=== PATIENT | female | born 1950 | race Caucasian/White ===

== ENCOUNTER 2022-11-20 19:11 | Emergency (ER) | payer MEDICARE, OTHER ==
[~2022-11-20] VITALS: Ht 162.6 cm; Wt 70.0 kg
[~2022-11-20 19:11] MED LIST: LOPE-232 PO; LORA10TA7 PO; PANT-31 PO; SERT-162 PO; TOLT4CAP PO; TRAZ150T80 PO; TRAZADONE PO; TRAZODONE; VENL-67 PO; ZOLOFT
[2022-11-20 20:18] VITALS: BP 150/77
[2022-11-20 20:42] LABS: COVID AG,FIA SOURCE NASAL SWAB
[2022-11-20 20:46] LABS: BASOPHILS % (AUTO) 0.6 % (0.0-2.0); EOSINOPHILS % (AUTO) 0.1 % (1.0-6.0); HEMATOCRIT 41.1 % (36-46); HEMOGLOBIN 13.6 g/dL (12.0-16.0); LYMPHOCYTES # (AUTO) 0.9 K/uL (1.0-4.8); LYMPHOCYTES % (AUTO) 28.1 % (22.0-44.0); MEAN CORPUSCULAR HEMOGLOBIN 37.5 pg (26.0-34.0); MEAN CORPUSCULAR HGB CONC 33.1 G/dL (31.0-37.0); MEAN CORPUSCULAR VOLUME 113 fL (80-100); MONOCYTES # (AUTO) 0.1 K/uL (0.1-1.0); MONOCYTES % (AUTO) 2.9 % (2.0-9.0); NEUTROPHILS # (AUTO) 2.2 K/uL (1.8-7.7); NEUTROPHILS % (AUTO) 68.3 % (40.0-70.0); PLATELET COUNT (AUTO) 209 K/uL (150-450); RED BLOOD CELL COUNT(AUTO) 3.62 MIL/uL (4.00-5.20); RED CELL DISTRIBUTION WIDTH 14.4 % (11.5-14.5)
[2022-11-20 20:51] LABS: ANION GAP 17 mmol/L (8-16); CALCIUM, TOTAL 9.2 mg/dL (8.8-10.5); CARBON DIOXIDE 21 mmol/L (22-29); CHLORIDE 108 mmol/L (98-107); CREATININE 0.58 mg/dL (0.60-1.30); GLUCOSE,RANDOM 128 mg/dL (70-110); POTASSIUM 3.9 mmol/L (3.5-5.1); SODIUM SERUM 146 mmol/L (136-145); UREA NITROGEN, BLOOD 6 mg/dL (7-18)
[2022-11-20 20:57] LABS: ALANINE AMINOTRANSFERASE 70 U/L (12-78); ALBUMIN 3.4 g/dL (3.4-5.0); ALKALINE PHOSPHATASE 441 U/L (46-116); ASPARTATE AMINOTRANSFERASE 148 U/L (15-37); BILIRUBIN,TOTAL 0.6 mg/dL (0.1-1.0); GLOMERULAR FILTR. RATE CALC > 60 mL/min (>60); TOTAL PROTEIN, SERUM 6.8 g/dL (6.4-8.2)
== END 2022-11-21 01:59 | disposition home or self-care (01) ==
LOC: EMS 19:14
DX: R45.851 Suicidal ideations (principal); F32.A Depression, unspecified; E03.9 Hypothyroidism, unspecified; F10.20 Alcohol dependence, uncomplicated; F41.9 Anxiety disorder, unspecified; F17.210 Nicotine dependence, cigarettes, uncomplicated; Z96.642 Presence of left artificial hip joint; Z98.890 Other specified postprocedural states; Z20.822 Contact with and (suspected) exposure to COVID-19; Z91.51 Personal history of suicidal behavior
CPT/HCPCS: 99285; 87426; 80053; 85025; 36415; G0480

== ENCOUNTER 2023-03-10 14:49 | Inpatient (IN) | payer MEDICARE, MEDICAID ==
[~2023-03-10] VITALS: Ht 157.5 cm; Wt 60.0 kg
[2023-03-10 15:46] LABS: COVID AG,FIA SOURCE NASOPHARYNGEAL
[2023-03-10 15:49] LABS: BASOPHILS % (AUTO) 0.8 % (0.0-2.0); EOSINOPHILS % (AUTO) 1.4 % (1.0-6.0); HEMATOCRIT 37.5 % (36-46); HEMOGLOBIN 12.5 g/dL (12.0-16.0); LYMPHOCYTES # (AUTO) 2.3 K/uL (1.0-4.8); MEAN CORPUSCULAR HEMOGLOBIN 36.7 pg (26.0-34.0); MEAN CORPUSCULAR HGB CONC 33.3 G/dL (31.0-37.0); MEAN CORPUSCULAR VOLUME 110 fL (80-100); MONOCYTES # (AUTO) 0.5 K/uL (0.1-1.0); MONOCYTES % (AUTO) 9.8 % (2.0-9.0); PLATELET COUNT (AUTO) 185 K/uL (150-450); RED BLOOD CELL COUNT(AUTO) 3.39 MIL/uL (4.00-5.20); RED CELL DISTRIBUTION WIDTH 15.1 % (11.5-14.5)
[2023-03-10 15:50] LABS: APPEARANCE,URINE CLEAR (CLEAR); BILIRUBIN,URINE NEGATIVE (NEGATIVE); GLUCOSE, URINE (UA) NEGATIVE (NEGATIVE); KETONES,URINE NEGATIVE (NEGATIVE); LEUKOCYTE ESTERASE ,URINE NEGATIVE (NEGATIVE); NITRATE,URINE NEGATIVE (NEGATIVE); OCCULT BLOOD,URINE NEGATIVE (NEGATIVE); PROTEIN,URINE NEGATIVE (NEGATIVE); SPECIFIC GRAVITIY, URINE 1.002 (1.003-1.030); UROBILINOGEN,URINE <=1.0 mg/dL (<=1.0)
[2023-03-10 15:57] LABS: AMPHET/METH SCREEN,URINE NEGATIVE (NEGATIVE); BARBITURATE SCREEN, URINE NEGATIVE (NEGATIVE); BENZODIAZEPINES SCREEN,URINE NEGATIVE (NEGATIVE); CANNABINOID SCREEN,URINE NEGATIVE (NEGATIVE); COCAINE SCREEN,URINE NEGATIVE (NEGATIVE); METHADONE SCREEN, URINE NEGATIVE (NEGATIVE); OPIATE SCREEN,URINE NEGATIVE (NEGATIVE); PHENCYCLIDINE SCREEN,URINE NEGATIVE (NEGATIVE)
[2023-03-10] MEDS ORDERED: QUEtiapine FUMARATE 100 MG TABLET PO PRN (16:00)
[2023-03-10] MEDS ORDERED: ZOLPIDEM TARTRATE 10 MG TABLET PO PRN (16:00)
[2023-03-10 16:02] LABS: ANION GAP 9 mmol/L (8-16); CARBON DIOXIDE 28 mmol/L (22-29); CHLORIDE 107 mmol/L (98-107); CREATININE 0.46 mg/dL (0.60-1.30); GLOMERULAR FILTR. RATE CALC > 60 mL/min (>60); GLUCOSE,RANDOM 110 mg/dL (70-110); POTASSIUM 4.4 mmol/L (3.5-5.1); SODIUM SERUM 144 mmol/L (136-145); UREA NITROGEN, BLOOD 4 mg/dL (7-18)
[2023-03-10 16:08] LABS: ALANINE AMINOTRANSFERASE 74 U/L (12-78); ALBUMIN 3.1 g/dL (3.4-5.0); ALKALINE PHOSPHATASE 532 U/L (46-116); ASPARTATE AMINOTRANSFERASE 208 U/L (15-37); BILIRUBIN,TOTAL 0.9 mg/dL (0.1-1.0); LIPASE 29 U/L (73-393); TOTAL PROTEIN, SERUM 6.3 g/dL (6.4-8.2)
[2023-03-10] MEDS ORDERED: LEVO25TA9 PO (16:09)
[2023-03-10] MEDS ORDERED: VENL-68 PO (16:09)
[2023-03-10] MEDS ORDERED: TRAZ-283 PO (16:09)
[2023-03-10 16:12] LABS: LACTIC ACID 3.2 mmol/L (0.4-2.0)
[2023-03-10 16:26] LABS: BACTERIA,URINE Moderate /HPF (None Seen); RBC,URINE 0-2 /HPF (0-2)
[2023-03-10] MEDS ORDERED: PERTUSS(ACELL),DIPH,TET VAC/PF 0.5 ML SYRINGE IM. ONE (17:00)
[2023-03-10] MEDS ORDERED: BACITRACIN 0.9 GM PACKET OINTMENT TP ONE (17:00)
[2023-03-10] MEDS: LORazepam 1 MG TABLET PO PRN ×2 (18:37→20:18)
[2023-03-11] MEDS ORDERED: TraZODone HCL 50 MG TABLET PO ONE ×2 (02:30→21:30)
[2023-03-11 06:58] LABS: ANION GAP 6 mmol/L (8-16); CALCIUM, TOTAL 8.2 mg/dL (8.8-10.5); CARBON DIOXIDE 26 mmol/L (22-29); CHLORIDE 107 mmol/L (98-107); CREATININE 0.48 mg/dL (0.60-1.30); GLOMERULAR FILTR. RATE CALC > 60 mL/min (>60); GLUCOSE,RANDOM 106 mg/dL (70-110); POTASSIUM 4.1 mmol/L (3.5-5.1); SODIUM SERUM 139 mmol/L (136-145); UREA NITROGEN, BLOOD 6 mg/dL (7-18)
[2023-03-11 07:08] LABS: LACTIC ACID 0.6 mmol/L (0.4-2.0)
[2023-03-11] MEDS: LORazepam 1 MG TABLET PO PRN ×3 (08:09→14:45)
[2023-03-11] MEDS: LEVOTHYROXINE SODIUM 25 MCG TABLET PO SCH (09:18)
[2023-03-11] MEDS: VENLAFAXINE HCL 150 MG ER CAPSULE PO SCH (12:07)
[2023-03-11] MEDS ORDERED: ACETAMINOPHEN 325 MG TABLET PO ONE (17:00)
[2023-03-11 23:30] VITALS: BP 136/66
[2023-03-12] MEDS ORDERED: PNEUMOCOCCAL VACCINE POLYVALENT 0.5 ML VIAL [PPSV23] IM. ONE (03:15)
[2023-03-12] MEDS: LEVOTHYROXINE SODIUM 25 MCG TABLET PO SCH (06:10)
[2023-03-12 09:52] VITALS: BP 148/77
[2023-03-12] MEDS: VENLAFAXINE HCL 150 MG ER CAPSULE PO SCH (10:28)
[2023-03-12] MEDS: LORazepam 1 MG TABLET PO PRN ×2 (10:46→20:06)
[2023-03-12 16:41] VITALS: BP 145/78
[2023-03-12] MEDS ORDERED: BACITRACIN 28 GM OINTMENT TP PRN (17:30)
[2023-03-12] MEDS ORDERED: IBUPROFEN 600 MG TABLET PO PRN (17:30)
[2023-03-12] MEDS ORDERED: PETROLATUM,WHITE 28 GM JELLY TP PRN (17:30)
[2023-03-12] MEDS ORDERED: ALBUTEROL SULFATE HFA 90 MCG/PUFF 8 GM INHALER IH PRN (17:30)
[2023-03-12] MEDS ORDERED: MAG HYDROX/AL HYDROX/SIMETH ES 30 ML SUSPENSION UDCUP PO PRN (17:30)
[2023-03-12] MEDS ORDERED: CloNIDine HCL 0.1 MG TABLET PO PRN (17:30)
[2023-03-12] MEDS ORDERED: OMEPRAZOLE 20 MG CAPSULE PO PRN (17:30)
[2023-03-12] MEDS ORDERED: ACETAMINOPHEN 325 MG TABLET PO PRN (17:30)
[2023-03-12] MEDS ORDERED: DOCUSATE SODIUM 100 MG CAPSULE PO PRN (17:30)
[2023-03-12] MEDS ORDERED: LOPERAMIDE HCL 2 MG CAPSULE PO PRN (17:30)
[2023-03-12] MEDS ORDERED: MAGNESIUM HYDROXIDE SUSPENSION 30 ML UDCUP PO PRN (17:30)
[2023-03-12] MEDS ORDERED: ONDANSETRON HCL 4 MG TABLET PO PRN (17:30)
[2023-03-12] MEDS: TOLTERODINE TARTRATE 2 MG ER CAPSULE PO SCH (20:42)
[2023-03-13] MEDS: LEVOTHYROXINE SODIUM 25 MCG TABLET PO SCH (06:11)
[2023-03-13] MEDS: VENLAFAXINE HCL 150 MG ER CAPSULE PO SCH (08:59)
[2023-03-13 09:00] VITALS: BP 139/78
[2023-03-13] MEDS: LORATADINE 10 MG TABLET PO SCH (09:00)
[2023-03-13] MEDS: FOLIC ACID 1 MG TABLET PO SCH (09:00)
[2023-03-13] MEDS: THIAMINE 100 MG TABLET PO SCH (09:00)
[2023-03-13] MEDS: MULTIVITAMINS WITH MINERALS, THERAPEUTIC TABLET PO SCH (09:01)
[2023-03-13] MEDS: LORazepam 1 MG TABLET PO PRN ×2 (12:01→20:31)
[2023-03-13 20:30] VITALS: BP 132/83
[2023-03-13] MEDS: TOLTERODINE TARTRATE 2 MG ER CAPSULE PO SCH (20:32)
[2023-03-13] MEDS: TraZODone HCL 150 MG TABLET PO SCH (21:24)
[2023-03-14] MEDS: LEVOTHYROXINE SODIUM 25 MCG TABLET PO SCH (06:48)
[2023-03-14 08:00] VITALS: BP 134/83
[2023-03-14] MEDS: MULTIVITAMINS WITH MINERALS, THERAPEUTIC TABLET PO SCH (09:25)
[2023-03-14] MEDS: VENLAFAXINE HCL 150 MG ER CAPSULE PO SCH (09:25)
[2023-03-14] MEDS: THIAMINE 100 MG TABLET PO SCH (09:25)
[2023-03-14] MEDS: FOLIC ACID 1 MG TABLET PO SCH (09:25)
[2023-03-14] MEDS: LORATADINE 10 MG TABLET PO SCH (09:27)
[2023-03-14] MEDS: LORazepam 1 MG TABLET PO PRN ×2 (10:06→17:10)
[2023-03-14 12:30] VITALS: BP 112/61
[2023-03-14 13:30] VITALS: BP 123/60
[2023-03-14] MEDS: TraZODone HCL 150 MG TABLET PO SCH (21:14)
[2023-03-14] MEDS: TOLTERODINE TARTRATE 2 MG ER CAPSULE PO SCH (21:14)
[2023-03-15] MEDS: LEVOTHYROXINE SODIUM 25 MCG TABLET PO SCH (06:40)
[2023-03-15] MEDS: FOLIC ACID 1 MG TABLET PO SCH (08:53)
[2023-03-15] MEDS: THIAMINE 100 MG TABLET PO SCH (08:53)
[2023-03-15] MEDS: VENLAFAXINE HCL 150 MG ER CAPSULE PO SCH (08:53)
[2023-03-15] MEDS: LORATADINE 10 MG TABLET PO SCH (08:53)
[2023-03-15] MEDS: MULTIVITAMINS WITH MINERALS, THERAPEUTIC TABLET PO SCH (08:54)
[2023-03-15] MEDS: LORazepam 1 MG TABLET PO PRN (09:39)
[2023-03-15 09:41] VITALS: BP 102/60
[2023-03-15 17:12] VITALS: BP 136/70
[2023-03-15] MEDS ORDERED: TRAZ-283 PO (20:16)
[2023-03-15] MEDS ORDERED: VENL150C4 PO (20:16)
[2023-03-15 20:43] VITALS: BP 111/63
[2023-03-15] MEDS: TOLTERODINE TARTRATE 2 MG ER CAPSULE PO SCH (20:52)
[2023-03-15] MEDS: TraZODone HCL 150 MG TABLET PO SCH (20:52)
[2023-03-16] MEDS: LEVOTHYROXINE SODIUM 25 MCG TABLET PO SCH (06:38)
[2023-03-16 06:48] LABS: COVID AG,FIA SOURCE NASAL SWAB
[2023-03-16] MEDS ORDERED: CEFU500T41 PO (07:11)
[2023-03-16] MEDS ORDERED: LORA10TA7 PO ×2 (07:18→07:22)
[2023-03-16] MEDS ORDERED: LEVO125T95 PO (07:21)
[2023-03-16] MEDS: FOLIC ACID 1 MG TABLET PO SCH (08:41)
[2023-03-16] MEDS: LORATADINE 10 MG TABLET PO SCH (08:41)
[2023-03-16] MEDS: THIAMINE 100 MG TABLET PO SCH (08:41)
[2023-03-16] MEDS: VENLAFAXINE HCL 150 MG ER CAPSULE PO SCH (08:42)
[2023-03-16] MEDS: MULTIVITAMINS WITH MINERALS, THERAPEUTIC TABLET PO SCH (08:43)
== END 2023-03-16 10:05 | disposition home or self-care (01) | DRG 881 ==
LOC: EMS 14:49 → UNDOADMIN 03-11 22:20 → 3EX 03-11 22:20
PROVIDERS: ADMIT Psychiatry & Neurology Psychiatry; ATTEND Psychiatry & Neurology Psychiatry
DX: F32.9 Major depressive disorder, single episode, unspecified (principal); F10.229 Alcohol dependence with intoxication, unspecified; R45.851 Suicidal ideations; E87.20 Acidosis, unspecified; I10 Essential (primary) hypertension; K21.9 Gastro-esophageal reflux disease without esophagitis; F41.9 Anxiety disorder, unspecified; G47.00 Insomnia, unspecified; E03.9 Hypothyroidism, unspecified; K59.00 Constipation, unspecified; Y90.8 Blood alcohol level of 240 mg/100 ml or more; F12.90 Cannabis use, unspecified, uncomplicated; F17.210 Nicotine dependence, cigarettes, uncomplicated; K70.30 Alcoholic cirrhosis of liver without ascites; R32 Unspecified urinary incontinence; Z96.642 Presence of left artificial hip joint
CPT/HCPCS: 80048; 80053; 80307; 81001; 83605; 83690; 84484; 85025; 87086; 87186; 90715; 93005; 99285; G0378; G0480

== ENCOUNTER 2023-07-09 18:25 | Inpatient (IN) | payer MEDICARE, MEDICAID ==
[~2023-07-09] VITALS: Ht 154.9 cm; Wt 64.5 kg
[~2023-07-09 18:25] MED LIST changes: +CEFU500T41 PO; +LEVO125T95 PO; -LOPE-232 PO; -PANT-31 PO; -SERT-162 PO; -TOLT4CAP PO; +TRAZ-283 PO; -TRAZ150T80 PO; -TRAZADONE PO; -TRAZODONE; -VENL-67 PO; +VENL150C4 PO; -ZOLOFT
[2023-07-09] MEDS ORDERED: LORazepam 2 MG TABLET PO ONE (19:45)
[2023-07-09 20:14] LABS: COVID AG,FIA SOURCE NASAL SWAB
[2023-07-09 20:27] LABS: ALCOHOL, URINE DRUG SCREEN POSITIVE (NEGATIVE); AMPHET/METH SCREEN,URINE NEGATIVE (NEGATIVE); BARBITURATE SCREEN, URINE NEGATIVE (NEGATIVE); BENZODIAZEPINES SCREEN,URINE NEGATIVE (NEGATIVE); CANNABINOID SCREEN,URINE NEGATIVE (NEGATIVE); COCAINE SCREEN,URINE NEGATIVE (NEGATIVE); METHADONE SCREEN, URINE NEGATIVE (NEGATIVE); OPIATE SCREEN,URINE NEGATIVE (NEGATIVE); PHENCYCLIDINE SCREEN,URINE NEGATIVE (NEGATIVE)
[2023-07-09] MEDS ORDERED: HALOPERIDOL 5 MG TABLET PO PRN (20:30)
[2023-07-09] MEDS ORDERED: LORazepam 2 MG TABLET PO PRN (20:30)
[2023-07-09] MEDS ORDERED: ZOLPIDEM TARTRATE 10 MG TABLET PO PRN (20:30)
[2023-07-09 20:55] LABS: SARS-COV2 (COVID) ANTIGEN,FIA Negative (Negative)
[2023-07-09] MEDS ORDERED: PROMETHAZINE HCL 25 MG TABLET PO PRN (21:00)
[2023-07-09] MEDS ORDERED: MAGNESIUM HYDROXIDE SUSPENSION 30 ML UDCUP PO PRN (21:00)
[2023-07-09] MEDS ORDERED: GuaiFENesin/D-METHORPHAN [SUGAR-FREE] 200-20MG/10 ML SYRUP UDCUP PO PRN (21:00)
[2023-07-09] MEDS ORDERED: DIAZEPAM 10 MG TABLET PO PRN (21:00)
[2023-07-09] MEDS ORDERED: LOPERAMIDE HCL 2 MG CAPSULE PO PRN ×2 (21:00)
[2023-07-09] MEDS ORDERED: TUBERCULIN, PURIFIED PROTEIN DERIVATIVE 5 TU/0.1 ML SYRINGE ID ONE (21:00)
[2023-07-09] MEDS ORDERED: HydrOXYzine PAMOATE 50 MG CAPSULE PO PRN (21:00)
[2023-07-09] MEDS ORDERED: MAG HYDROX/AL HYDROX/SIMETH ES 30 ML SUSPENSION UDCUP PO PRN (21:00)
[2023-07-09 21:32] LABS: BASOPHILS % (AUTO) 0.6 % (0.0-2.0); EOSINOPHILS % (AUTO) 1.6 % (1.0-6.0); HEMATOCRIT 35.2 % (36-46); HEMOGLOBIN 11.6 g/dL (12.0-16.0); LYMPHOCYTES # (AUTO) 2.4 K/uL (1.0-4.8); LYMPHOCYTES % (AUTO) 54.1 % (22.0-44.0); MEAN CORPUSCULAR HGB CONC 32.9 G/dL (31.0-37.0); MEAN CORPUSCULAR VOLUME 100 fL (80-100); MONOCYTES # (AUTO) 0.4 K/uL (0.1-1.0); MONOCYTES % (AUTO) 8.6 % (2.0-9.0); NEUTROPHILS # (AUTO) 1.6 K/uL (1.8-7.7); NEUTROPHILS % (AUTO) 35.1 % (40.0-70.0); PLATELET COUNT (AUTO) 137 K/uL (150-450); RED BLOOD CELL COUNT(AUTO) 3.51 MIL/uL (4.00-5.20); RED CELL DISTRIBUTION WIDTH 14.8 % (11.5-14.5); WHITE BLOOD COUNT (AUTO) 4.5 K/uL (4.5-11.0)
[2023-07-09 21:53] LABS: ANION GAP 13 mmol/L (8-16); CALCIUM, TOTAL 8.2 mg/dL (8.8-10.5); CARBON DIOXIDE 23 mmol/L (22-29); CHLORIDE 104 mmol/L (98-107); CREATININE 0.41 mg/dL (0.60-1.30); GLOMERULAR FILTR. RATE CALC > 60 mL/min (>60); GLUCOSE,RANDOM 105 mg/dL (70-110); POTASSIUM 3.5 mmol/L (3.5-5.1); SODIUM SERUM 140 mmol/L (136-145); UREA NITROGEN, BLOOD 7 mg/dL (7-18)
[2023-07-09 21:58] LABS: ALANINE AMINOTRANSFERASE 37 U/L (12-78); ALKALINE PHOSPHATASE 175 U/L (46-116); ASPARTATE AMINOTRANSFERASE 71 U/L (15-37); BILIRUBIN,TOTAL 0.4 mg/dL (0.1-1.0); TOTAL PROTEIN, SERUM 5.7 g/dL (6.4-8.2)
[2023-07-09 22:05] LABS: ALCOHOL, BLOOD (SERUM) 193 mg/dL (0-10)
[2023-07-09] MEDS: MELATONIN 5 MG TABLET PO SCH (22:06)
[2023-07-09] MEDS: THIAMINE 100 MG TABLET PO SCH (22:06)
[2023-07-09] MEDS ORDERED: CYANOCOBALAMIN 1,000 MCG/ML VIAL IM ONE (23:00)
[2023-07-09 23:30] VITALS: BP 111/73; PULSE 93; RESP 19; TEMP 98.4; O2SAT 98
[2023-07-10] VITALS (11 sets, daily range): BP systolic 110–147; BP diastolic 67–97; PULSE 74–106; RESP 18–19; TEMP 97.3–98.5; O2SAT 97–99
[2023-07-10] MEDS ORDERED: DIAZEPAM 10 MG TABLET PO PRN (07:00)
[2023-07-10] MEDS ORDERED: LEVOTHYROXINE SODIUM 25 MCG TABLET PO SCH (08:15)
[2023-07-10] MEDS ORDERED: LEVOTHYROXINE SODIUM 125 MCG TABLET PO SCH (08:15)
[2023-07-10] MEDS: LEVOTHYROXINE SODIUM 25 MCG TABLET PO SCH (08:16)
[2023-07-10 08:42] LABS: HEMOGLOBIN A1C 4.5 % (3.8-5.6)
[2023-07-10 08:49] LABS: CHOL/HDL RATIO 1.8 (3.9-5.7); FREE T4 (FREE THYROXINE) 0.63 ng/dL (0.76-1.46); THYROID STIMULATING HORMONE 1.85 uIU/mL (0.36-3.74)
[2023-07-10] MEDS: DULoxetine HCL 20 MG CAPSULE PO SCH ×2 (09:00→09:04)
[2023-07-10] MEDS: OMEGA-3/DHA/EPA/FISH OIL 1,000 MG CAPSULE PO SCH (09:04)
[2023-07-10] MEDS: FOLIC ACID 1 MG TABLET PO SCH (09:04)
[2023-07-10] MEDS: DIAZEPAM 10 MG TABLET PO SCH ×4 (09:05→21:31)
[2023-07-10] MEDS: THIAMINE 100 MG TABLET PO SCH ×2 (09:05→18:28)
[2023-07-10] MEDS: NALTREXONE HCL 50 MG TABLET PO SCH (09:05)
[2023-07-10] MEDS: MULTIVITAMINS WITH MINERALS, THERAPEUTIC TABLET PO SCH (09:05)
[2023-07-10] MEDS: LORATADINE 10 MG TABLET PO SCH (14:32)
[2023-07-10] MEDS: TraZODone HCL 150 MG TABLET PO SCH (21:31)
[2023-07-10] MEDS: MELATONIN 5 MG TABLET PO SCH (21:31)
[2023-07-11 02:30] VITALS: BP 127/69; PULSE 76; RESP 18; TEMP 97.8; O2SAT 98
[2023-07-11 06:30] VITALS: BP 124/67; PULSE 75; RESP 19; TEMP 97.8; O2SAT 99
[2023-07-11] MEDS: LEVOTHYROXINE SODIUM 25 MCG TABLET PO SCH (06:31)
[2023-07-11] MEDS: NALTREXONE HCL 50 MG TABLET PO SCH (09:57)
[2023-07-11] MEDS: FOLIC ACID 1 MG TABLET PO SCH (09:57)
[2023-07-11] MEDS: LORATADINE 10 MG TABLET PO SCH (09:57)
[2023-07-11] MEDS: THIAMINE 100 MG TABLET PO SCH ×2 (09:57→17:04)
[2023-07-11] MEDS: DULoxetine HCL 20 MG CAPSULE PO SCH (09:57)
[2023-07-11] MEDS: OMEGA-3/DHA/EPA/FISH OIL 1,000 MG CAPSULE PO SCH (09:57)
[2023-07-11] MEDS: MULTIVITAMINS WITH MINERALS, THERAPEUTIC TABLET PO SCH (09:58)
[2023-07-11] MEDS: DIAZEPAM 10 MG TABLET PO SCH ×5 (10:09→21:23)
[2023-07-11 11:22] VITALS: BP 112/79; PULSE 88; RESP 18; TEMP 98; O2SAT 98
[2023-07-11 20:51] VITALS: BP 123/76; PULSE 74; RESP 18; TEMP 98.1; O2SAT 97
[2023-07-11] MEDS: MELATONIN 5 MG TABLET PO SCH ×2 (21:00→21:23)
[2023-07-11] MEDS: TraZODone HCL 150 MG TABLET PO SCH (21:23)
[2023-07-11 22:33] VITALS: BP 123/76; PULSE 74; RESP 18; TEMP 98.1; O2SAT 97
[2023-07-12] VITALS (7 sets, daily range): BP systolic 121–124; BP diastolic 65–77; PULSE 71–84; RESP 17–18; TEMP 97.4–97.8; O2SAT 97–99
[2023-07-12] MEDS: LEVOTHYROXINE SODIUM 25 MCG TABLET PO SCH (06:38)
[2023-07-12] MEDS ORDERED: DIAZEPAM 5 MG TABLET PO PRN (07:00)
[2023-07-12] MEDS: LORATADINE 10 MG TABLET PO SCH (08:36)
[2023-07-12] MEDS: NALTREXONE HCL 50 MG TABLET PO SCH (08:36)
[2023-07-12] MEDS: THIAMINE 100 MG TABLET PO SCH ×2 (08:36→16:07)
[2023-07-12] MEDS: FOLIC ACID 1 MG TABLET PO SCH (08:36)
[2023-07-12] MEDS: DULoxetine HCL 30 MG CAPSULE PO SCH (08:37)
[2023-07-12] MEDS: MULTIVITAMINS WITH MINERALS, THERAPEUTIC TABLET PO SCH (08:39)
[2023-07-12] MEDS: DIAZEPAM 5 MG TABLET PO SCH ×3 (08:47→16:10)
[2023-07-12] MEDS: OMEGA-3/DHA/EPA/FISH OIL 1,000 MG CAPSULE PO SCH (08:47)
[2023-07-12] MEDS: ACETAMINOPHEN 325 MG TABLET PO PRN (11:22)
[2023-07-12] MEDS: FLUTICASONE PROPIONATE 50 MCG/SPRAY 16 GM NASAL SPRAY NASAL PRN (16:07)
[2023-07-12] MEDS ORDERED: LORazepam 2 MG TABLET PO PRN (16:30)
[2023-07-12] MEDS ORDERED: LORazepam 1 MG TABLET PO ONE (16:30)
[2023-07-12] MEDS: MELATONIN 5 MG TABLET PO SCH (21:00)
[2023-07-12] MEDS: TraZODone HCL 150 MG TABLET PO SCH (21:11)
[2023-07-13] VITALS (8 sets, daily range): BP systolic 106–116; BP diastolic 60–72; PULSE 69–82; RESP 17–19; TEMP 97.2–98.5; O2SAT 97–100
[2023-07-13] MEDS: ACETAMINOPHEN 325 MG TABLET PO PRN (06:13)
[2023-07-13] MEDS: LEVOTHYROXINE SODIUM 25 MCG TABLET PO SCH (06:13)
[2023-07-13] MEDS ORDERED: DIAZEPAM 5 MG TABLET PO PRN (07:00)
[2023-07-13] MEDS: LORATADINE 10 MG TABLET PO SCH (11:23)
[2023-07-13] MEDS: OMEGA-3/DHA/EPA/FISH OIL 1,000 MG CAPSULE PO SCH (11:23)
[2023-07-13] MEDS: DULoxetine HCL 30 MG CAPSULE PO SCH (11:23)
[2023-07-13] MEDS: MULTIVITAMINS WITH MINERALS, THERAPEUTIC TABLET PO SCH (11:24)
[2023-07-13] MEDS: FOLIC ACID 1 MG TABLET PO SCH (11:24)
[2023-07-13] MEDS: NALTREXONE HCL 50 MG TABLET PO SCH (11:24)
[2023-07-13] MEDS: THIAMINE 100 MG TABLET PO SCH ×2 (11:24→16:37)
[2023-07-13] MEDS: IBUPROFEN 600 MG TABLET PO PRN (12:26)
[2023-07-13] MEDS ORDERED: ACETAMINOPHEN 325 MG TABLET PO PRN (15:00)
[2023-07-13] MEDS: LORazepam 2 MG TABLET PO PRN (18:47)
[2023-07-13] MEDS: TraZODone HCL 150 MG TABLET PO SCH (20:30)
[2023-07-13] MEDS: MELATONIN 5 MG TABLET PO SCH (20:31)
[2023-07-14] MEDS: LEVOTHYROXINE SODIUM 25 MCG TABLET PO SCH (06:31)
[2023-07-14 08:02] VITALS: BP 128/66; PULSE 76; RESP 18; TEMP 96.8; O2SAT 96
[2023-07-14] MEDS: MULTIVITAMINS WITH MINERALS, THERAPEUTIC TABLET PO SCH (09:15)
[2023-07-14] MEDS: LORATADINE 10 MG TABLET PO SCH (09:15)
[2023-07-14] MEDS: OMEGA-3/DHA/EPA/FISH OIL 1,000 MG CAPSULE PO SCH (09:15)
[2023-07-14] MEDS: FOLIC ACID 1 MG TABLET PO SCH (09:16)
[2023-07-14] MEDS: THIAMINE 100 MG TABLET PO SCH ×2 (09:16→17:38)
[2023-07-14] MEDS: NALTREXONE HCL 50 MG TABLET PO SCH (09:16)
[2023-07-14] MEDS: LORazepam 2 MG TABLET PO PRN (13:00)
[2023-07-14] MEDS: PSYLLIUM SEED ORANGE SF 5.8 GM/PACKET PO PRN (15:22)
[2023-07-14 17:48] VITALS: BP 124/68; PULSE 74; RESP 19; TEMP 97.3
[2023-07-14] MEDS: IBUPROFEN 600 MG TABLET PO PRN (17:48)
[2023-07-14 18:48] VITALS: BP 116/68; PULSE 72; TEMP 97.6
[2023-07-14] MEDS: TraZODone HCL 150 MG TABLET PO SCH (20:50)
[2023-07-14] MEDS: DULoxetine HCL 30 MG CAPSULE PO SCH (20:51)
[2023-07-14] MEDS: MELATONIN 5 MG TABLET PO SCH (20:51)
[2023-07-14 20:54] VITALS: BP 108/61; PULSE 67; RESP 18; TEMP 97.4; O2SAT 95
[2023-07-14 21:08] VITALS: BP 108/61; PULSE 67; RESP 18; TEMP 97.4; O2SAT 95
[2023-07-15] MEDS: LEVOTHYROXINE SODIUM 25 MCG TABLET PO SCH (06:26)
[2023-07-15] MEDS ORDERED: LORazepam 1 MG TABLET PO PRN (07:00)
[2023-07-15 08:26] VITALS: BP 115/66; PULSE 81; RESP 19; TEMP 98; O2SAT 96
[2023-07-15 08:32] VITALS: BP 115/66; PULSE 81; RESP 19; TEMP 98; O2SAT 96
[2023-07-15] MEDS ORDERED: LORazepam 1 MG TABLET PO SCH (09:00)
[2023-07-15] MEDS: NALTREXONE HCL 50 MG TABLET PO SCH (09:19)
[2023-07-15] MEDS: OMEGA-3/DHA/EPA/FISH OIL 1,000 MG CAPSULE PO SCH (09:19)
[2023-07-15] MEDS: THIAMINE 100 MG TABLET PO SCH ×2 (09:19→16:54)
[2023-07-15] MEDS: FOLIC ACID 1 MG TABLET PO SCH (09:19)
[2023-07-15] MEDS: LORATADINE 10 MG TABLET PO SCH (09:19)
[2023-07-15] MEDS: MULTIVITAMINS WITH MINERALS, THERAPEUTIC TABLET PO SCH (09:20)
[2023-07-15] MEDS: IBUPROFEN 600 MG TABLET PO PRN (09:50)
[2023-07-15] MEDS: LORazepam 1 MG TABLET PO PRN (09:51)
[2023-07-15] MEDS: FLUTICASONE PROPIONATE 50 MCG/SPRAY 16 GM NASAL SPRAY NASAL PRN (14:29)
[2023-07-15] MEDS: PSYLLIUM SEED ORANGE SF 5.8 GM/PACKET PO PRN (15:36)
[2023-07-15] MEDS: DULoxetine HCL 30 MG CAPSULE PO SCH (20:26)
[2023-07-15] MEDS: MELATONIN 5 MG TABLET PO SCH (20:26)
[2023-07-15] MEDS: TraZODone HCL 150 MG TABLET PO SCH (20:26)
[2023-07-15 22:04] VITALS: BP 124/76; PULSE 62; RESP 18; TEMP 98.1; O2SAT 97
[2023-07-15 23:01] VITALS: BP 124/76; PULSE 68; RESP 18; TEMP 98.1; O2SAT 97
[2023-07-16] MEDS: LEVOTHYROXINE SODIUM 25 MCG TABLET PO SCH (06:37)
[2023-07-16] MEDS ORDERED: LORazepam 1 MG TABLET PO PRN (07:00)
[2023-07-16] MEDS: FOLIC ACID 1 MG TABLET PO SCH (08:56)
[2023-07-16] MEDS: THIAMINE 100 MG TABLET PO SCH ×2 (08:56→17:21)
[2023-07-16] MEDS: OMEGA-3/DHA/EPA/FISH OIL 1,000 MG CAPSULE PO SCH (08:56)
[2023-07-16] MEDS: LORATADINE 10 MG TABLET PO SCH (08:56)
[2023-07-16] MEDS: NALTREXONE HCL 50 MG TABLET PO SCH (08:57)
[2023-07-16] MEDS: MULTIVITAMINS WITH MINERALS, THERAPEUTIC TABLET PO SCH (08:58)
[2023-07-16] MEDS ORDERED: LACTULOSE 20 GM/30 ML SOLUTION UDCUP PO PRN (09:00)
[2023-07-16] MEDS: LORazepam 1 MG TABLET PO PRN (09:02)
[2023-07-16] MEDS: IBUPROFEN 600 MG TABLET PO PRN (09:02)
[2023-07-16] MEDS ORDERED: GABAPENTIN 300 MG CAPSULE PO PRN (10:00)
[2023-07-16 10:46] VITALS: BP 103/59; PULSE 87; RESP 17; TEMP 97.4; O2SAT 97
[2023-07-16] MEDS: MELATONIN 5 MG TABLET PO SCH (20:23)
[2023-07-16] MEDS: DULoxetine HCL 30 MG CAPSULE PO SCH (20:23)
[2023-07-16] MEDS: TraZODone HCL 150 MG TABLET PO SCH (20:23)
[2023-07-16] MEDS ORDERED: MELA5TAB40 PO (20:42)
[2023-07-16] MEDS ORDERED: TRAZ-283 PO (20:42)
[2023-07-16] MEDS ORDERED: OMEG-135 PO (20:42)
[2023-07-16] MEDS ORDERED: DULO-114 PO (20:42)
[2023-07-16 23:55] VITALS: BP 118/60; PULSE 77; RESP 17; TEMP 97.2; O2SAT 97
[2023-07-17] MEDS: LEVOTHYROXINE SODIUM 25 MCG TABLET PO SCH (06:36)
[2023-07-17] MEDS: LORATADINE 10 MG TABLET PO SCH (08:19)
[2023-07-17] MEDS: NALTREXONE HCL 50 MG TABLET PO SCH (08:19)
[2023-07-17] MEDS: FOLIC ACID 1 MG TABLET PO SCH (08:19)
[2023-07-17] MEDS: OMEGA-3/DHA/EPA/FISH OIL 1,000 MG CAPSULE PO SCH (08:19)
[2023-07-17] MEDS: THIAMINE 100 MG TABLET PO SCH ×2 (08:19→18:25)
[2023-07-17 08:20] VITALS: BP 127/69; PULSE 74; RESP 18; TEMP 98.5; O2SAT 98
[2023-07-17] MEDS: MULTIVITAMINS WITH MINERALS, THERAPEUTIC TABLET PO SCH (08:21)
[2023-07-17] MEDS: IBUPROFEN 600 MG TABLET PO PRN ×2 (08:21→18:25)
[2023-07-17 20:49] LABS: COVID AG,FIA SOURCE NASAL SWAB
[2023-07-17] MEDS: MELATONIN 5 MG TABLET PO SCH (21:00)
[2023-07-17] MEDS: DULoxetine HCL 30 MG CAPSULE PO SCH (21:00)
[2023-07-17 21:07] LABS: SARS-COV2 (COVID) ANTIGEN,FIA Negative (Negative)
[2023-07-17] MEDS: TraZODone HCL 150 MG TABLET PO SCH (21:36)
[2023-07-17 22:25] VITALS: BP 144/78; PULSE 68; RESP 18; TEMP 97.7; O2SAT 97
[2023-07-18] MEDS: LEVOTHYROXINE SODIUM 25 MCG TABLET PO SCH (06:24)
[2023-07-18 06:41] VITALS: BP 126/78; PULSE 67; RESP 17; TEMP 98.2; O2SAT 98
[2023-07-18] MEDS: IBUPROFEN 600 MG TABLET PO PRN (06:49)
[2023-07-18 09:04] VITALS: BP 121/80; PULSE 66; RESP 18; TEMP 97.8; O2SAT 97
== END 2023-07-18 10:25 | disposition home or self-care (01) | DRG 885 ==
LOC: EMS 18:32 → 3EX 21:30
PROVIDERS: ADMIT Psychiatry & Neurology Psychiatry; ATTEND Psychiatry & Neurology Psychiatry
DX: F33.2 Major depressive disorder, recurrent severe without psychotic features (principal); F10.229 Alcohol dependence with intoxication, unspecified; R45.851 Suicidal ideations; F10.239 Alcohol dependence with withdrawal, unspecified; E03.9 Hypothyroidism, unspecified; I10 Essential (primary) hypertension; F17.210 Nicotine dependence, cigarettes, uncomplicated; K21.9 Gastro-esophageal reflux disease without esophagitis; Z96.642 Presence of left artificial hip joint; K59.00 Constipation, unspecified; R32 Unspecified urinary incontinence; M19.90 Unspecified osteoarthritis, unspecified site; J44.9 Chronic obstructive pulmonary disease, unspecified; G47.00 Insomnia, unspecified; D69.6 Thrombocytopenia, unspecified; D64.9 Anemia, unspecified; F41.9 Anxiety disorder, unspecified; Y90.6 Blood alcohol level of 120-199 mg/100 ml; M25.562 Pain in left knee; J30.9 Allergic rhinitis, unspecified; Z20.822 Contact with and (suspected) exposure to COVID-19; Z55.9 Problems related to education and literacy, unspecified; Z59.9 Problem related to housing and economic circumstances, unspecified; Z63.9 Problem related to primary support group, unspecified; Z65.3 Problems related to other legal circumstances; Z59.00 Homelessness unspecified; Z79.899 Other long term (current) drug therapy
CPT/HCPCS: 80053; 80061; 80307; 83036; 84439; 84443; 85025; 86592; 93005; 99285; G0378; G0480; J3420; Q9967

== ENCOUNTER 2024-06-16 04:39 | Emergency (ER) | payer MEDICARE ==
[~2024-06-16] VITALS: Ht 154.9 cm; Wt 59.1 kg
[~2024-06-16 04:39] MED LIST changes: -CEFU500T41 PO; +LEVO50 PO; +MELA5TAB40 PO; +OMEG-135 PO; +VENL-68 PO; -VENL150C4 PO
[2024-06-16 05:56] LABS: BASOPHILS % (AUTO) 0.2 % (0.0-2.0); HEMATOCRIT 36.2 % (36-46); HEMOGLOBIN 12.2 g/dL (12.0-16.0); LYMPHOCYTES # (AUTO) 0.9 K/uL (1.0-4.8); LYMPHOCYTES % (AUTO) 11.2 % (22.0-44.0); MEAN CORPUSCULAR HEMOGLOBIN 35.5 pg (26.0-34.0); MEAN CORPUSCULAR HGB CONC 33.7 G/dL (31.0-37.0); MEAN CORPUSCULAR VOLUME 105 fL (80-100); MONOCYTES # (AUTO) 0.4 K/uL (0.1-1.0); MONOCYTES % (AUTO) 5.2 % (2.0-9.0); NEUTROPHILS # (AUTO) 6.7 K/uL (1.8-7.7); NEUTROPHILS % (AUTO) 82.4 % (40.0-70.0); PLATELET COUNT (AUTO) 233 K/uL (150-450); RED BLOOD CELL COUNT(AUTO) 3.44 MIL/uL (4.00-5.20); RED CELL DISTRIBUTION WIDTH 14.7 % (11.5-14.5); WHITE BLOOD COUNT (AUTO) 8.1 K/uL (4.5-11.0)
[2024-06-16 06:06] LABS: ANION GAP 5 mmol/L (8-16); CALCIUM, TOTAL 8.8 mg/dL (8.8-10.5); CARBON DIOXIDE 32 mmol/L (22-29); CHLORIDE 104 mmol/L (98-107); CREATININE 0.69 mg/dL (0.60-1.30); GLOMERULAR FILTR. RATE CALC > 60 mL/min (>60); GLUCOSE,RANDOM 125 mg/dL (70-110); SODIUM SERUM 140 mmol/L (136-145); UREA NITROGEN, BLOOD 6 mg/dL (7-18)
[2024-06-16] MEDS: KETOROLAC TROMETHAMINE 30 MG/ML VIAL IM ONE (06:22)
[2024-06-16] MEDS: LORazepam 1 MG TABLET PO ONE (08:14)
[2024-06-16 08:38] LABS: APPEARANCE,URINE HAZY (CLEAR); BILIRUBIN,URINE NEGATIVE (NEGATIVE); COLOR,URINE YELLOW (YELLOW); GLUCOSE, URINE (UA) NEGATIVE (NEGATIVE); KETONES,URINE NEGATIVE (NEGATIVE); LEUKOCYTE ESTERASE ,URINE NEGATIVE (NEGATIVE); NITRATE,URINE NEGATIVE (NEGATIVE); OCCULT BLOOD,URINE NEGATIVE (NEGATIVE); PROTEIN,URINE TRACE mg/dL (NEGATIVE); SPECIFIC GRAVITIY, URINE 1.018 (1.003-1.030)
[2024-06-16 08:46] LABS: BACTERIA,URINE None Seen /HPF (None Seen); RBC,URINE 0-2 /HPF (0-2); SQUAMOUS EPITHELIAL CELL,UR Many /LPF (None Seen); WBC,URINE 0-2 /HPF (0-5)
[2024-06-16] MEDS: CEPHALEXIN MONOHYDRATE 500 MG CAPSULE PO ONE (09:11)
[2024-06-16 09:28] VITALS: TEMP 98
[2024-06-16] MEDS ORDERED: CEPH-558 PO (09:29)
[2024-06-16 10:20] VITALS: BP 121/66; PULSE 71; RESP 15
== END 2024-06-16 11:04 ==
LOC: EMS 04:40
DX: F32.9 Major depressive disorder, single episode, unspecified (principal); R39.15 Urgency of urination; F10.20 Alcohol dependence, uncomplicated; F41.9 Anxiety disorder, unspecified; M19.90 Unspecified osteoarthritis, unspecified site; F32.A Depression, unspecified; I10 Essential (primary) hypertension; E03.9 Hypothyroidism, unspecified; F17.210 Nicotine dependence, cigarettes, uncomplicated; F12.90 Cannabis use, unspecified, uncomplicated; Z96.642 Presence of left artificial hip joint; Z98.890 Other specified postprocedural states
CPT/HCPCS: 99285; 70450; 80048; 81001; 85025; 36415; 73521; 73552; 72131; 74176; 96372; J1885

== ENCOUNTER 2024-06-16 20:58 | Inpatient (IN) | payer MEDICARE ==
[~2024-06-16] VITALS: Ht 160 cm; Wt 65.2 kg
[~2024-06-16 20:58] MED LIST changes: +CEPH-558 PO
[2024-06-17 01:26] VITALS: PULSE 86; PULSE 96; RESP 20; O2SAT 95
[2024-06-17] MEDS: IPRATROPIUM BROMIDE 0.5 MG/2.5 ML NEB SOLUTION NEB ONE (01:26)
[2024-06-17] MEDS: ALBUTEROL SULFATE 2.5 MG/0.5 ML NEB SOLUTION NEB ONE (01:26)
[2024-06-17 01:41] VITALS: PULSE 68; RESP 20; O2SAT 97
[2024-06-17 02:16] LABS: TROPONIN I-HIGH SENSITIVITY Less Than 4 ng/L (<51)
[2024-06-17] MEDS: NITROGLYCERIN 2% (1 GM=INCH) OINTMENT PACKET TP ONE (03:20)
[2024-06-17] MEDS: FUROSEMIDE 20 MG/2 ML VIAL IVP ONE (03:20)
[2024-06-17] MEDS: LORazepam 2 MG/ML VIAL IVP ONE (05:05)
[2024-06-17] MEDS: KETOROLAC TROMETHAMINE 30 MG/ML VIAL IVP ONE (05:06)
[2024-06-17 06:13] VITALS: BP 109/63; PULSE 71; RESP 19; TEMP 97.5
[2024-06-17 07:27] VITALS: BP 103/62; PULSE 63; RESP 18; TEMP 98.5
[2024-06-17] MEDS ORDERED: ALBUTEROL SULFATE 2.5 MG/0.5 ML NEB SOLUTION NEB PRN (10:15)
[2024-06-17] MEDS ORDERED: IPRATROPIUM BROMIDE 0.5 MG/2.5 ML NEB SOLUTION NEB PRN (10:15)
[2024-06-17] MEDS ORDERED: LEVOFLOXACIN 750 MG/D5% WATER 150 ML IV SCH (11:00)
[2024-06-17 11:08] VITALS: BP 125/68; PULSE 63; RESP 18; TEMP 98
[2024-06-17] MEDS ORDERED: MAGNESIUM HYDROXIDE SUSPENSION 30 ML UDCUP PO PRN (11:15)
[2024-06-17] MEDS ORDERED: ONDANSETRON HCL 4 MG/2 ML VIAL IVP PRN (11:15)
[2024-06-17] MEDS ORDERED: ZOLPIDEM TARTRATE 5 MG TABLET PO PRN (11:15)
[2024-06-17] MEDS ORDERED: MORPHINE SULFATE 2 MG/ML SYRINGE IVP PRN (11:15)
[2024-06-17] MEDS ORDERED: ACETAMINOPHEN 325 MG TABLET PO PRN (11:15)
[2024-06-17] MEDS: HYDROCODONE/ACETAMINOPHEN 5-325 MG TABLET PO PRN (11:23)
[2024-06-17] MEDS ORDERED: SODIUM CHLORIDE 0.9% 250 ML IV ONE (12:12)
[2024-06-17] MEDS: CefTRIAXone 1 GM/DEXTROSE 50 ML IV SCH (12:15)
[2024-06-17] MEDS: AZITHROMYCIN 500 MG/NS 250 ML IV SCH (12:56)
[2024-06-17 15:16] VITALS: BP 119/68; PULSE 65; RESP 18; TEMP 98.1
[2024-06-17] MEDS: HEPARIN SODIUM,PORCINE 5,000 UNITS/ML VIAL SQ SCH (16:29)
[2024-06-17] MEDS: TraZODone HCL 150 MG TABLET PO SCH (20:55)
[2024-06-17] MEDS: DOCUSATE SODIUM 100 MG CAPSULE PO SCH (20:55)
[2024-06-18] VITALS (7 sets, daily range): BP systolic 90–119; BP diastolic 55–72; PULSE 65–73; RESP 18; TEMP 97.5–98.6
[2024-06-18] MEDS ORDERED: LEVOTHYROXINE SODIUM 50 MCG TABLET PO SCH (06:30)
[2024-06-18 06:34] LABS: BASOPHILS % (AUTO) 0.5 % (0.0-2.0); EOSINOPHILS % (AUTO) 1.9 % (1.0-6.0); HEMATOCRIT 31.8 % (36-46); HEMOGLOBIN 10.7 g/dL (12.0-16.0); LYMPHOCYTES # (AUTO) 1.3 K/uL (1.0-4.8); LYMPHOCYTES % (AUTO) 32.2 % (22.0-44.0); MEAN CORPUSCULAR HEMOGLOBIN 35.2 pg (26.0-34.0); MEAN CORPUSCULAR HGB CONC 33.5 G/dL (31.0-37.0); MEAN CORPUSCULAR VOLUME 105 fL (80-100); MONOCYTES # (AUTO) 0.6 K/uL (0.1-1.0); NEUTROPHILS % (AUTO) 51.4 % (40.0-70.0); PLATELET COUNT (AUTO) 185 K/uL (150-450); RED BLOOD CELL COUNT(AUTO) 3.03 MIL/uL (4.00-5.20); RED CELL DISTRIBUTION WIDTH 14.5 % (11.5-14.5)
[2024-06-18 06:47] LABS: WHITE BLOOD COUNT (AUTO) 3.9 K/uL (4.5-11.0)
[2024-06-18] MEDS: LEVOTHYROXINE SODIUM 75 MCG TABLET PO SCH (07:01)
[2024-06-18 07:08] LABS: ANION GAP 10 mmol/L (8-16); CALCIUM, TOTAL 8.2 mg/dL (8.8-10.5); CARBON DIOXIDE 31 mmol/L (22-29); CHLORIDE 100 mmol/L (98-107); GLOMERULAR FILTR. RATE CALC > 60 mL/min (>60); GLUCOSE,RANDOM 97 mg/dL (70-110); POTASSIUM 3.6 mmol/L (3.5-5.1); SODIUM SERUM 141 mmol/L (136-145); UREA NITROGEN, BLOOD 9 mg/dL (7-18)
[2024-06-18 07:45] LABS: RBC MORPHOLOGY COMMENT ABNORMAL RBC MORPH
[2024-06-18] MEDS: PANTOPRAZOLE SODIUM 40 MG DR TABLET PO SCH (08:01)
[2024-06-18] MEDS: VENLAFAXINE HCL 150 MG ER CAPSULE PO SCH (08:01)
[2024-06-18] MEDS: LORATADINE 10 MG TABLET PO SCH (08:01)
[2024-06-18] MEDS: OMEGA-3/DHA/EPA/FISH OIL 1,000 MG CAPSULE PO SCH (08:01)
[2024-06-18] MEDS ORDERED: SENNOSIDES 8.8 MG/5 ML SYRUP UDCUP PO PRN (11:00)
[2024-06-18] MEDS ORDERED: POLYETHYLENE GLYCOL 3350 17 GM PACKET PO PRN (11:00)
[2024-06-18] MEDS: HYDROmorphone HCL 2 MG/ML SYRINGE IVP PRN (11:08)
[2024-06-18] MEDS: FUROSEMIDE 20 MG/2 ML VIAL IVP SCH (15:46)
[2024-06-18 17:15] LABS: TROPONIN I-HIGH SENSITIVITY Less Than 4 ng/L (<51)
[2024-06-19 06:58] LABS: BASOPHILS % (AUTO) 0.5 % (0.0-2.0); HEMATOCRIT 35.5 % (36-46); HEMOGLOBIN 11.9 g/dL (12.0-16.0); LYMPHOCYTES # (AUTO) 1.4 K/uL (1.0-4.8); LYMPHOCYTES % (AUTO) 32.8 % (22.0-44.0); MEAN CORPUSCULAR HEMOGLOBIN 35.2 pg (26.0-34.0); MEAN CORPUSCULAR HGB CONC 33.4 G/dL (31.0-37.0); MEAN CORPUSCULAR VOLUME 105 fL (80-100); MONOCYTES # (AUTO) 0.6 K/uL (0.1-1.0); MONOCYTES % (AUTO) 13.6 % (2.0-9.0); NEUTROPHILS # (AUTO) 2.2 K/uL (1.8-7.7); NEUTROPHILS % (AUTO) 52.1 % (40.0-70.0); PLATELET COUNT (AUTO) 197 K/uL (150-450); RED BLOOD CELL COUNT(AUTO) 3.37 MIL/uL (4.00-5.20); RED CELL DISTRIBUTION WIDTH 14.4 % (11.5-14.5); WHITE BLOOD COUNT (AUTO) 4.1 K/uL (4.5-11.0)
[2024-06-19 07:31] LABS: ANION GAP 5 mmol/L (8-16); CALCIUM, TOTAL 8.8 mg/dL (8.8-10.5); CARBON DIOXIDE 32 mmol/L (22-29); CHLORIDE 103 mmol/L (98-107); CREATININE 0.55 mg/dL (0.60-1.30); GLOMERULAR FILTR. RATE CALC > 60 mL/min (>60); GLUCOSE,RANDOM 94 mg/dL (70-110); POTASSIUM 3.4 mmol/L (3.5-5.1); SODIUM SERUM 140 mmol/L (136-145); UREA NITROGEN, BLOOD 9 mg/dL (7-18)
[2024-06-19] MEDS ORDERED: POTASSIUM CHL 10 MEQ/WATER 50 ML IV PRN (11:00)
[2024-06-19 12:23] VITALS: BP 115/65; PULSE 81; RESP 18; TEMP 98.6
[2024-06-19 17:37] VITALS: BP_SYST 113; BP_SYST 144; BP_DIAS 64; BP_DIAS 69; PULSE 64; PULSE 77; RESP 18; TEMP 97.5
[2024-06-19 20:00] VITALS: BP 112/69; PULSE 84; RESP 17; TEMP 98.2
[2024-06-20 00:30] VITALS: BP 105/61; PULSE 71; RESP 18; TEMP 98
[2024-06-20] MEDS: POTASSIUM CHLORIDE 20 MEQ ER TABLET PO PRN (01:38)
[2024-06-20 04:35] VITALS: BP 119/62; PULSE 74; RESP 17; TEMP 98.2
[2024-06-20 07:26] LABS: BASOPHILS % (AUTO) 0.7 % (0.0-2.0); EOSINOPHILS % (AUTO) 1.9 % (1.0-6.0); HEMATOCRIT 32.8 % (36-46); HEMOGLOBIN 11.2 g/dL (12.0-16.0); LYMPHOCYTES # (AUTO) 1.3 K/uL (1.0-4.8); MEAN CORPUSCULAR HEMOGLOBIN 35.3 pg (26.0-34.0); MEAN CORPUSCULAR HGB CONC 34.1 G/dL (31.0-37.0); MEAN CORPUSCULAR VOLUME 104 fL (80-100); MONOCYTES # (AUTO) 0.5 K/uL (0.1-1.0); MONOCYTES % (AUTO) 13.3 % (2.0-9.0); NEUTROPHILS # (AUTO) 1.5 K/uL (1.8-7.7); NEUTROPHILS % (AUTO) 45.1 % (40.0-70.0); PLATELET COUNT (AUTO) 175 K/uL (150-450); RED BLOOD CELL COUNT(AUTO) 3.17 MIL/uL (4.00-5.20); WHITE BLOOD COUNT (AUTO) 3.4 K/uL (4.5-11.0)
[2024-06-20 07:48] VITALS: BP 107/61; PULSE 66; RESP 18; TEMP 97.8
[2024-06-20 07:56] LABS: ANION GAP 8 mmol/L (8-16); CALCIUM, TOTAL 8.4 mg/dL (8.8-10.5); CARBON DIOXIDE 28 mmol/L (22-29); CHLORIDE 103 mmol/L (98-107); CREATININE 0.61 mg/dL (0.60-1.30); GLOMERULAR FILTR. RATE CALC > 60 mL/min (>60); GLUCOSE,RANDOM 93 mg/dL (70-110); POTASSIUM 3.4 mmol/L (3.5-5.1); SODIUM SERUM 139 mmol/L (136-145); UREA NITROGEN, BLOOD 7 mg/dL (7-18)
[2024-06-20] MEDS: SENNOSIDES 8.8 MG/5 ML SYRUP UDCUP PO ONE (08:42)
[2024-06-20] MEDS: LIDOCAINE 5% TRANSDERMAL PATCH TD SCH (08:43)
[2024-06-20] MEDS: HYDROmorphone HCL 2 MG/ML SYRINGE IVP PRN (08:59)
[2024-06-20] MEDS ORDERED: HYDROmorphone HCL 2 MG/ML SYRINGE IVP PRN ×2 (09:00→11:00)
[2024-06-20] MEDS: POLYETHYLENE GLYCOL 3350 17 GM PACKET PO SCH (09:02)
[2024-06-20 09:09] LABS: RBC MORPHOLOGY COMMENT ABNORMAL RBC MORPH
[2024-06-20 10:50] VITALS: BP 118/70; PULSE 78; RESP 19; TEMP 98
[2024-06-20] MEDS: LORazepam 0.5 MG TABLET PO ONE (11:52)
[2024-06-20 15:52] VITALS: BP 97/54; PULSE 80; RESP 18; TEMP 97.9
[2024-06-20] MEDS: BISACODYL 10 MG RECTAL RECTAL SUPPOSITORY PR PRN (18:50)
[2024-06-20 20:30] VITALS: BP 104/60; PULSE 83; RESP 18; TEMP 98.2
[2024-06-20] MEDS: -LIDODERM PATCH NOTE- MISC SCH (20:42)
[2024-06-21 01:53] VITALS: BP 120/61; PULSE 77; RESP 16; TEMP 98.4
[2024-06-21 04:53] VITALS: BP 119/65; PULSE 81; RESP 18; TEMP 98.5
[2024-06-21 07:20] LABS: BASOPHILS % (AUTO) 0.4 % (0.0-2.0); EOSINOPHILS % (AUTO) 1.4 % (1.0-6.0); HEMATOCRIT 33.4 % (36-46); HEMOGLOBIN 11.3 g/dL (12.0-16.0); LYMPHOCYTES # (AUTO) 1.3 K/uL (1.0-4.8); LYMPHOCYTES % (AUTO) 29.5 % (22.0-44.0); MEAN CORPUSCULAR HEMOGLOBIN 35.2 pg (26.0-34.0); MEAN CORPUSCULAR HGB CONC 33.9 G/dL (31.0-37.0); MEAN CORPUSCULAR VOLUME 104 fL (80-100); MONOCYTES # (AUTO) 0.7 K/uL (0.1-1.0); MONOCYTES % (AUTO) 14.5 % (2.0-9.0); NEUTROPHILS # (AUTO) 2.4 K/uL (1.8-7.7); NEUTROPHILS % (AUTO) 54.2 % (40.0-70.0); PLATELET COUNT (AUTO) 164 K/uL (150-450); RED BLOOD CELL COUNT(AUTO) 3.22 MIL/uL (4.00-5.20); RED CELL DISTRIBUTION WIDTH 14.2 % (11.5-14.5); WHITE BLOOD COUNT (AUTO) 4.5 K/uL (4.5-11.0)
[2024-06-21 07:32] LABS: ANION GAP 7 mmol/L (8-16); CALCIUM, TOTAL 8.8 mg/dL (8.8-10.5); CARBON DIOXIDE 28 mmol/L (22-29); CHLORIDE 104 mmol/L (98-107); CREATININE 0.61 mg/dL (0.60-1.30); GLOMERULAR FILTR. RATE CALC > 60 mL/min (>60); GLUCOSE,RANDOM 108 mg/dL (70-110); POTASSIUM 4.1 mmol/L (3.5-5.1); SODIUM SERUM 139 mmol/L (136-145); UREA NITROGEN, BLOOD 9 mg/dL (7-18)
[2024-06-21] MEDS: FUROSEMIDE 20 MG TABLET PO SCH (08:58)
[2024-06-21 09:12] VITALS: BP 121/67; PULSE 74; RESP 18; TEMP 98.4
[2024-06-21 15:35] VITALS: BP 122/62; PULSE 63; RESP 18; TEMP 98.4
[2024-06-21] MEDS: SODIUM CHLORIDE 0.9% 250 ML IV ONE (15:41)
[2024-06-21 17:19] LABS: CREATININE 0.56 mg/dL (0.60-1.30); GLOMERULAR FILTR. RATE CALC > 60 mL/min (>60)
[2024-06-21 19:48] VITALS: BP 124/58; PULSE 83; RESP 18; TEMP 98.3
[2024-06-22 05:06] VITALS: BP 116/70; PULSE 67; RESP 18; TEMP 97.5
[2024-06-22 08:45] VITALS: BP 117/74; PULSE 73; RESP 18; TEMP 98.3
[2024-06-22] MEDS: PHENAZOPYRIDINE HCL 100 MG TABLET PO SCH (09:17)
[2024-06-22 20:30] VITALS: BP 124/62; PULSE 76; RESP 18; TEMP 98
[2024-06-23 04:00] VITALS: BP 115/66; PULSE 69; RESP 18; TEMP 97.7
[2024-06-23 07:24] VITALS: BP 138/78; PULSE 70; RESP 20; TEMP 98
[2024-06-23 15:40] VITALS: BP 111/61; PULSE 72; RESP 20; TEMP 98.3
[2024-06-23 20:30] VITALS: BP 127/67; PULSE 68; RESP 22; TEMP 98.5
[2024-06-24 04:00] VITALS: BP 125/68; PULSE 67; RESP 20; TEMP 97.7
[2024-06-24 06:36] LABS: HEMATOCRIT 32.1 % (36-46); HEMOGLOBIN 10.9 g/dL (12.0-16.0); MEAN CORPUSCULAR HEMOGLOBIN 34.7 pg (26.0-34.0); MEAN CORPUSCULAR HGB CONC 33.9 G/dL (31.0-37.0); MEAN CORPUSCULAR VOLUME 102 fL (80-100); PLATELET COUNT (AUTO) 156 K/uL (150-450); RED BLOOD CELL COUNT(AUTO) 3.13 MIL/uL (4.00-5.20); WHITE BLOOD COUNT (AUTO) 3.9 K/uL (4.5-11.0)
[2024-06-24 06:48] LABS: ANION GAP 9 mmol/L (8-16); BAND NEUTROPHILS % (MANUAL) 0 % (0-5); CALCIUM, TOTAL 8.5 mg/dL (8.8-10.5); CARBON DIOXIDE 29 mmol/L (22-29); CHLORIDE 102 mmol/L (98-107); GLOMERULAR FILTR. RATE CALC > 60 mL/min (>60); GLUCOSE,RANDOM 87 mg/dL (70-110); POTASSIUM 3.9 mmol/L (3.5-5.1); SODIUM SERUM 140 mmol/L (136-145); UREA NITROGEN, BLOOD 6 mg/dL (7-18)
[2024-06-24 08:14] LABS: EOSINOPHILS % (MANUAL) 3 % (1-6); LYMPHOCYTES % (MANUAL) 41 % (22-44); MONOCYTES % (MANUAL) 2 % (2-9); SEGMENTED NEUTROPHILS % 54 % (40-70); TOTAL CELLS COUNTED 100
[2024-06-24 08:15] LABS: RBC MORPHOLOGY COMMENT ABNORMAL RBC MORPH
[2024-06-24 19:25] VITALS: BP 136/68; PULSE 77; RESP 19; TEMP 98.5
[2024-06-25 03:20] VITALS: BP 101/59; PULSE 68; RESP 18; TEMP 97.8
[2024-06-25 08:20] VITALS: BP 128/69; PULSE 69; RESP 20; TEMP 98.2
[2024-06-25 14:54] VITALS: BP 107/61; PULSE 69; RESP 20; TEMP 98.5
[2024-06-25 21:48] VITALS: BP 134/78; PULSE 69; RESP 18; TEMP 98.1
[2024-06-26 05:23] VITALS: BP 117/68; PULSE 68; RESP 18; TEMP 98
[2024-06-26 08:57] VITALS: BP_SYST 114; PULSE 68; RESP 16; TEMP 98.3
[2024-06-26 20:00] VITALS: BP 117/66; PULSE 72; RESP 18; TEMP 98.1
[2024-06-27 02:58] VITALS: BP 114/69; PULSE 69; RESP 20; TEMP 97.9
[2024-06-27 09:38] VITALS: BP 105/67; PULSE 68; RESP 19; TEMP 97.9
[2024-06-27 16:29] VITALS: BP 137/78; PULSE 73; RESP 18; TEMP 98.1
[2024-06-27 20:39] VITALS: BP 122/65; PULSE 67; RESP 16; TEMP 97.6
[2024-06-28 04:06] VITALS: BP 118/64; PULSE 62; RESP 16; TEMP 98
[2024-06-28 07:58] VITALS: BP 119/47; PULSE 67; RESP 18; TEMP 97.8
[2024-06-28 07:58] LABS: BASOPHILS % (AUTO) 0.6 % (0.0-2.0); EOSINOPHILS % (AUTO) 3.8 % (1.0-6.0); HEMATOCRIT 33.4 % (36-46); HEMOGLOBIN 11.4 g/dL (12.0-16.0); LYMPHOCYTES # (AUTO) 1.3 K/uL (1.0-4.8); LYMPHOCYTES % (AUTO) 36.2 % (22.0-44.0); MEAN CORPUSCULAR HGB CONC 34.2 G/dL (31.0-37.0); MEAN CORPUSCULAR VOLUME 102 fL (80-100); MONOCYTES # (AUTO) 0.5 K/uL (0.1-1.0); MONOCYTES % (AUTO) 13.9 % (2.0-9.0); NEUTROPHILS # (AUTO) 1.6 K/uL (1.8-7.7); NEUTROPHILS % (AUTO) 45.5 % (40.0-70.0); PLATELET COUNT (AUTO) 129 K/uL (150-450); RED BLOOD CELL COUNT(AUTO) 3.26 MIL/uL (4.00-5.20); RED CELL DISTRIBUTION WIDTH 13.9 % (11.5-14.5); WHITE BLOOD COUNT (AUTO) 3.5 K/uL (4.5-11.0)
[2024-06-28 08:07] LABS: ANION GAP 4 mmol/L (8-16); CALCIUM, TOTAL 8.8 mg/dL (8.8-10.5); CARBON DIOXIDE 29 mmol/L (22-29); CHLORIDE 103 mmol/L (98-107); CREATININE 0.68 mg/dL (0.60-1.30); GLOMERULAR FILTR. RATE CALC > 60 mL/min (>60); GLUCOSE,RANDOM 84 mg/dL (70-110); POTASSIUM 4.7 mmol/L (3.5-5.1); SODIUM SERUM 136 mmol/L (136-145); UREA NITROGEN, BLOOD 10 mg/dL (7-18)
[2024-06-28 15:36] VITALS: BP 109/69; PULSE 69; RESP 18; TEMP 97.8
[2024-06-28 19:19] VITALS: BP 145/80; PULSE 68; RESP 18; TEMP 97.5
[2024-06-29 06:33] VITALS: BP 120/84; PULSE 70; RESP 20; TEMP 98.3
[2024-06-29 08:26] VITALS: BP 106/63; PULSE 63; RESP 18; TEMP 97.8
[2024-06-29 15:31] VITALS: BP 116/70; PULSE 77; RESP 18; TEMP 98.3
[2024-06-29 19:17] VITALS: BP 117/72; PULSE 73; RESP 18; TEMP 98.5
[2024-06-30 04:19] VITALS: BP 103/61; PULSE 63; RESP 18; TEMP 97.4
[2024-06-30 09:01] VITALS: BP 98/54; PULSE 68; RESP 18; TEMP 97.9
[2024-06-30 16:47] VITALS: BP 128/69; PULSE 65; RESP 20; TEMP 98.6
[2024-06-30 20:30] VITALS: BP 133/78; PULSE 74; RESP 18; TEMP 98.5
[2024-07-01 03:32] VITALS: BP 115/70; PULSE 70; RESP 18; TEMP 97.7
[2024-07-01 08:36] VITALS: BP 116/71; PULSE 65; RESP 18; TEMP 98.3
[2024-07-01 16:21] VITALS: BP 124/80; PULSE 76; RESP 18; TEMP 98.8
[2024-07-01] MEDS ORDERED: LIDO700A15 TP (18:03)
[2024-07-01] MEDS ORDERED: FURO20 PO (18:05)
[2024-07-01] MEDS ORDERED: PANT-31 PO (18:08)
[2024-07-01] MEDS ORDERED: POLY17PO62 PO (18:09)
[2024-07-01] MEDS ORDERED: ACET-2247 PO (18:11)
[2024-07-01] MEDS ORDERED: BISA10SU11 PR (18:12)
[2024-07-01] MEDS ORDERED: HYDR-4062 PO (18:13)
[2024-07-01] MEDS ORDERED: SENN-376 PO (18:15)
[2024-07-01] MEDS ORDERED: ZOLP-280 PO (18:15)
== END 2024-07-01 18:40 | DRG 177 ==
LOC: EMS 20:58 → EDH 06-17 05:07 → 5S 06-17 05:55 → 6S 06-20 13:48
PROVIDERS: ADMIT Internal Medicine; ATTEND Internal Medicine
PROC: GZHZZZZ Group Psychotherapy (ICD-10-PCS; principal; 2024-06-18)
DX: J15.69 Pneumonia due to other Gram-negative bacteria (principal); I50.33 Acute on chronic diastolic (congestive) heart failure; J96.01 Acute respiratory failure with hypoxia; S22.011A Stable burst fracture of first thoracic vertebra, initial encounter for closed fracture; N39.0 Urinary tract infection, site not specified; F33.2 Major depressive disorder, recurrent severe without psychotic features; I11.0 Hypertensive heart disease with heart failure; E03.9 Hypothyroidism, unspecified; K21.9 Gastro-esophageal reflux disease without esophagitis; F10.20 Alcohol dependence, uncomplicated; E87.6 Hypokalemia; Y90.7 Blood alcohol level of 200-239 mg/100 ml; Y95 Nosocomial condition; Z53.20 Procedure and treatment not carried out because of patient's decision for unspecified reasons; M19.09 Primary osteoarthritis, other specified site; K76.9 Liver disease, unspecified; F17.210 Nicotine dependence, cigarettes, uncomplicated; Y90.9 Presence of alcohol in blood, level not specified; Z96.642 Presence of left artificial hip joint; F41.9 Anxiety disorder, unspecified; X58.XXXA Exposure to other specified factors, initial encounter; Y93.89 Activity, other specified; Y92.89 Other specified places as the place of occurrence of the external cause; Y99.8 Other external cause status; Z79.899 Other long term (current) drug therapy; Z91.148 Patient's other noncompliance with medication regimen for other reason
CPT/HCPCS: 71045; 71250; 72100; 72128; 72131; 80048; 82565; 83735; 83880; 84132; 84484; 85025; 87040; 93005; 93306; 94640; 97110; 97116; 97162; 97166; 97530; 97535; 99285; J0456; J0696; J1170; J1644; J1885; J1940; J1956; J2060; J7050; 36415-L1; 36415-TC; J7613

== ENCOUNTER 2025-02-13 19:03 | Emergency (ER) | payer MEDICARE, OTHER ==
[~2025-02-13] VITALS: Ht 162.6 cm; Wt 70.0 kg
[~2025-02-13 19:03] MED LIST changes: +ACET-2247 PO; +BISA10SU11 PR; +FURO20TA5 PO; +HYDR-4062 PO; +LIDO700A15 TP; +PANT-31 PO; +POLY17PO62 PO; +SENN-376 PO; +ZOLP-280 PO
[2025-02-13 19:20] VITALS: TEMP 98.1
[2025-02-13 20:42] LABS: COVID AG,FIA SOURCE NASAL SWAB
[2025-02-13 20:52] LABS: BASOPHILS % (AUTO) 0.6 % (0.0-2.0); EOSINOPHILS % (AUTO) 2.1 % (1.0-6.0); HEMATOCRIT 42.8 % (36-46); HEMOGLOBIN 14.4 g/dL (12.0-16.0); LYMPHOCYTES # (AUTO) 2.4 K/uL (1.0-4.8); LYMPHOCYTES % (AUTO) 41.7 % (22.0-44.0); MEAN CORPUSCULAR HEMOGLOBIN 30.9 pg (26.0-34.0); MEAN CORPUSCULAR HGB CONC 33.7 G/dL (31.0-37.0); MEAN CORPUSCULAR VOLUME 92 fL (80-100); MONOCYTES # (AUTO) 0.5 K/uL (0.1-1.0); NEUTROPHILS # (AUTO) 2.7 K/uL (1.8-7.7); NEUTROPHILS % (AUTO) 47.6 % (40.0-70.0); PLATELET COUNT (AUTO) 238 K/uL (150-450); RED BLOOD CELL COUNT(AUTO) 4.66 MIL/uL (4.00-5.20); RED CELL DISTRIBUTION WIDTH 12.8 % (11.5-14.5); WHITE BLOOD COUNT (AUTO) 5.7 K/uL (4.5-11.0)
[2025-02-13 20:54] LABS: ANION GAP 12 mmol/L (8-16); CALCIUM, TOTAL 9.3 mg/dL (8.8-10.5); CARBON DIOXIDE 23 mmol/L (22-29); CHLORIDE 108 mmol/L (98-107); CREATININE 0.68 mg/dL (0.60-1.30); GLOMERULAR FILTR. RATE CALC > 60 mL/min (>60); GLUCOSE,RANDOM 85 mg/dL (70-110); POTASSIUM 3.3 mmol/L (3.5-5.1); SODIUM SERUM 143 mmol/L (136-145); UREA NITROGEN, BLOOD 8 mg/dL (7-18)
[2025-02-13 21:02] LABS: ALCOHOL, BLOOD (SERUM) 98 mg/dL (0-10)
[2025-02-13 21:04] LABS: SARS-COV2 (COVID) ANTIGEN,FIA Negative (Negative)
[2025-02-13 21:05] LABS: TROPONIN I-HIGH SENSITIVITY Less Than 4 ng/L (<51)
[2025-02-13] MEDS: POTASSIUM CHLORIDE 20 MEQ ER TABLET PO ONE (21:33)
[2025-02-13] MEDS: LORazepam 1 MG TABLET PO ONE (21:34)
[2025-02-13 22:04] LABS: APPEARANCE,URINE CLEAR (CLEAR); BILIRUBIN,URINE NEGATIVE (NEGATIVE); COLOR,URINE LIGHT YELLOW (YELLOW); GLUCOSE, URINE (UA) NEGATIVE (NEGATIVE); KETONES,URINE NEGATIVE (NEGATIVE); LEUKOCYTE ESTERASE ,URINE NEGATIVE (NEGATIVE); NITRATE,URINE NEGATIVE (NEGATIVE); OCCULT BLOOD,URINE NEGATIVE (NEGATIVE); PROTEIN,URINE NEGATIVE (NEGATIVE); SPECIFIC GRAVITIY, URINE 1.011 (1.003-1.030); UROBILINOGEN,URINE <=1.0 mg/dL (<=1.0)
[2025-02-13 22:10] LABS: ALCOHOL, URINE DRUG SCREEN POSITIVE (NEGATIVE); AMPHET/METH SCREEN,URINE NEGATIVE (NEGATIVE); BARBITURATE SCREEN, URINE NEGATIVE (NEGATIVE); BENZODIAZEPINES SCREEN,URINE NEGATIVE (NEGATIVE); CANNABINOID SCREEN,URINE NEGATIVE (NEGATIVE); COCAINE SCREEN,URINE NEGATIVE (NEGATIVE); METHADONE SCREEN, URINE NEGATIVE (NEGATIVE); OPIATE SCREEN,URINE NEGATIVE (NEGATIVE); PHENCYCLIDINE SCREEN,URINE NEGATIVE (NEGATIVE)
[2025-02-14 12:18] VITALS: BP 119/64; PULSE 74; RESP 16; O2SAT 97
== END 2025-02-14 12:19 | disposition home or self-care (01) ==
LOC: EMS 19:04
DX: F10.129 Alcohol abuse with intoxication, unspecified (principal); R45.851 Suicidal ideations; E87.6 Hypokalemia; E03.9 Hypothyroidism, unspecified; F12.90 Cannabis use, unspecified, uncomplicated; F32.A Depression, unspecified; F41.9 Anxiety disorder, unspecified; I10 Essential (primary) hypertension; J44.9 Chronic obstructive pulmonary disease, unspecified; F17.210 Nicotine dependence, cigarettes, uncomplicated; Z87.01 Personal history of pneumonia (recurrent); Z79.899 Other long term (current) drug therapy; Z20.822 Contact with and (suspected) exposure to COVID-19; Y90.9 Presence of alcohol in blood, level not specified
CPT/HCPCS: 99285; 71045; 87426; 80048; 84484; 85025; 36415; 93005; 80307; 81003; G0480

== ENCOUNTER 2025-07-18 15:55 | Emergency (ER) | payer MEDICARE, OTHER ==
[~2025-07-18] VITALS: Ht 162.6 cm; Wt 61.4 kg
[~2025-07-18 15:55] MED LIST changes: +LIDO-57 TP; -LIDO700A15 TP
[2025-07-18] MEDS: LORazepam 2 MG/ML VIAL IM ONE (17:11)
[2025-07-18 17:12] LABS: COVID AG,FIA SOURCE NASAL SWAB
[2025-07-18 17:29] LABS: SARS-COV2 (COVID) ANTIGEN,FIA Negative (Negative)
[2025-07-18 18:41] LABS: PLATELET COUNT (AUTO) 169 K/uL (150-450); RED BLOOD CELL COUNT(AUTO) 4.34 MIL/uL (4.00-5.20); RED CELL DISTRIBUTION WIDTH 13.8 % (11.5-14.5); WHITE BLOOD COUNT (AUTO) 6.0 K/uL (4.5-11.0)
[2025-07-18 18:48] LABS: CALCIUM, TOTAL 8.1 mg/dL (8.8-10.5); CREATININE 0.59 mg/dL (0.60-1.30); GLOMERULAR FILTR. RATE CALC > 60 mL/min (>60); GLUCOSE,RANDOM 86 mg/dL (70-110); SODIUM SERUM 145 mmol/L (136-145); UREA NITROGEN, BLOOD 10 mg/dL (7-18)
[2025-07-19 04:13] VITALS: TEMP 98.3
[2025-07-19 07:07] LABS: APPEARANCE,URINE CLEAR (CLEAR); GLUCOSE, URINE (UA) NEGATIVE (NEGATIVE); LEUKOCYTE ESTERASE ,URINE NEGATIVE (NEGATIVE); NITRATE,URINE NEGATIVE (NEGATIVE); OCCULT BLOOD,URINE NEGATIVE (NEGATIVE); PH,URINE DRUG SCREEN 6.5 (5.0-8.0); SPECIFIC GRAVITIY, URINE 1.018 (1.003-1.030)
[2025-07-19 07:15] LABS: ALCOHOL, URINE DRUG SCREEN NEGATIVE (NEGATIVE); AMPHET/METH SCREEN,URINE NEGATIVE (NEGATIVE); BARBITURATE SCREEN, URINE NEGATIVE (NEGATIVE); CANNABINOID SCREEN,URINE NEGATIVE (NEGATIVE); COCAINE SCREEN,URINE NEGATIVE (NEGATIVE); METHADONE SCREEN, URINE NEGATIVE (NEGATIVE)
[2025-07-19 10:00] VITALS: BP 116/60; PULSE 80; RESP 14; O2SAT 97
[2025-07-19] MEDS ORDERED: GABA-1181 PO (11:10)
[2025-07-19] MEDS ORDERED: FOLI-130 PO (12:39)
[2025-07-19] MEDS ORDERED: MOXI3DRO25 OD (12:39)
[2025-07-19] MEDS ORDERED: OXYB5TAB20 PO (12:39)
[2025-07-19] MEDS ORDERED: VENL-53 PO (12:39)
== END 2025-07-19 14:12 ==
LOC: EMS 15:55
DX: F32.9 Major depressive disorder, single episode, unspecified (principal); R45.851 Suicidal ideations; F10.229 Alcohol dependence with intoxication, unspecified; E03.9 Hypothyroidism, unspecified; F12.90 Cannabis use, unspecified, uncomplicated; I10 Essential (primary) hypertension; F41.9 Anxiety disorder, unspecified; M19.90 Unspecified osteoarthritis, unspecified site; Z79.899 Other long term (current) drug therapy; Z20.822 Contact with and (suspected) exposure to COVID-19; Y90.7 Blood alcohol level of 200-239 mg/100 ml
CPT/HCPCS: 99285; 87426; 80048; 81003; 85025; 36415; 96372; 80307; G0480; J1200; J1630; J2060